=== PATIENT | female | born 1950 | race Caucasian/White ===

== ENCOUNTER → 2017-05-01 | Outpatient (CLI) | payer MEDICARE ==
[~2017-05-01] MED LIST: BABY81CH OR; CALCTAB22 PO; ESTR62CR TOP; FISH1000 OR; FLAXOIL PO; MULTIVIT PO; SIMV5TAB2 OR; VIT D 2000 PO; VITA500C OR; [UNRECOGNIZED DRUG - OTHER] PO
--- NOTE | 2017-05-01 12:03 | REP ---
BILATERAL MAMMOGRAM: Bilateral mammography performed in the MLO and CC projections. Comparison made with multiple prior exams, most recent of which is 05/01/2016. Family history of breast cancer in sister. Breast parenchyma is moderately dense in a heterogeneous pattern bilaterally. Questionable 6 mm nodular density centrally on the left CC view may be inferiorly located on the MLO view. Recommend spot compression views and ultrasound to further evaluate. No other new mass or clustered microcalcifications are seen. IMPRESSION: ACR 0 incomplete. Possible new 6 mm nodular density left breast centrally on the CC view, possibly inferiorly on the MLO view. Recommend spot compression views and ultrasound to further evaluate. Also given the patient's family history and dense breast parenchyma, I would suggest MRI of the breasts. BI-RADS/ACR category 0 mammogram. Incomplete: Additional imaging and/or prior images are needed before a final assessment can be assigned. This mammogram was interpreted with the aid of an FDA-approved computer-aided detection system. A. Negative x-ray reports should not delay biopsy if a dominant or clinically suspicious mass is present. B. Four to eight percent of cancers are not identified by x-ray. C. Adenosis and dense breasts may obscure an underlying neoplasm. The patient states she had a clinical breast exam in 04/2017. The patient letter being requested is M0.
--- NOTE | 2017-05-02 09:47 | DEXA ---
AP SPINE L1 - L4 0.813 -3.1 -1.4 LT FEMUR TOTAL 0.809 -1.6 -0.2 RT FEMUR TOTAL 0.912 -0.8 0.6 TOTAL BODY TOTAL OTHER DUAL FEMUR FRAX* ASSESSMENT Risk factors: None. 10 year probability of fracture Major osteoporotic fracture 10.6 % Hip fracture 1.9 % COMMENTS: Normal bone densitometry of the right hip. There is low bone density of the left hip. There is osteoporosis of the spine. The increased density of the spine does represent a significant change. The decreased density of the left hip does represent a significant change. The decreased density of the right hip does not represent a significant change. The density of the spine is decreased 1.3% since the initial exam on 08/26/2007. The spine density has increased 2.4% since the most recent exam on 04/20/2015. The density of the left hip has decreased 2.2% since the initial exam on 2006. The density of the left hip has decreased 4.8% since the most recent exam on . The density of the right hip has increased 0.9% since the initial exam on 2006. The density of the right hip has decreased 1.0% since the most recent exam on . FOLLOW-UP: Recommendation for the next bone density exam: 2 years. SAFIA
== END ==
LOC: M WHC 10:03
PROVIDERS: ATTEND Nurse Practitioner Women's Health
DX: Z12.31 Encounter for screening mammogram for malignant neoplasm of breast (principal); R92.8 Other abnormal and inconclusive findings on diagnostic imaging of breast; M81.0 Age-related osteoporosis without current pathological fracture; Z78.0 Asymptomatic menopausal state; Z80.3 Family history of malignant neoplasm of breast; Z12.4 Encounter for screening for malignant neoplasm of cervix; N88.8 Other specified noninflammatory disorders of cervix uteri
CPT/HCPCS: 77080; G0123; G0202

== ENCOUNTER → 2017-05-01 | Outpatient (REF) | payer MEDICARE | LOC: M SFHCWAGY 10:27 | PROVIDERS: ATTEND Nurse Practitioner Women's Health | DX: Z12.4 Encounter for screening for malignant neoplasm of cervix (principal); N88.8 Other specified noninflammatory disorders of cervix uteri ==

== ENCOUNTER → 2017-05-10 | Outpatient (CLI) | payer MEDICARE ==
--- NOTE | 2017-05-10 13:42 | REP ---
LEFT BREAST ULTRASOUND: 05/10/2017 COMPARISON: Diagnostic digital left mammogram, 05/10/2017, screening mammogram 05/01/2017. CLINICAL HISTORY: Nodular tissue asymmetry on screening mammogram left breast centrally. Diagnostic mammogram performed today with multiple fibronodular densities. FINDINGS: Sonographic evaluation 4 to 8-o'clock position retroareolar lower breast. The exam shows multiple dilated ducts converging on the nipple without visible filling defects. Multiple small cysts identified. The largest at the 6-o'clock position is 5.5 x 3.7 x 3.2 mm, and it is 2.7 cm from nipple which would correspond well with the mammographic finding. IMPRESSION: 1. BIRADS ACR category 2, benign. Benign findings. Please see the mammographic report this date for final assessment and recommendation. Signed by Jordan Power MD 05/10/2017 10:18 P
--- NOTE | 2017-05-10 13:54 | REP ---
DIAGNOSTIC DIGITAL LEFT MAMMOGRAM: 05/10/2017 COMPARISON: Left breast ultrasound today, digital screening mammogram, 05/01/2017, 05/01/2016, 04/20/2015. CLINICAL HISTORY: Central areolar density on the CC view, not well seen on other views, but possibly inferiorly. Spot magnified CC, MLO, and true ML views were provided. The breast parenchyma is heterogeneously dense, which may lessen the sensitivity of mammography. Nodular tissue asymmetry is discernible, retroareolar zone centrally and in the CC view and difficult to see on the MLO view. On the true MLO view, I suspect it is at the 6-o'clock position. In the retroareolar zone, there are no abnormal clusters of microcalcification, dominant masses, or other secondary signs of malignancy. No skin thickening noted. The left breast ultrasound showed multiple small cysts, the largest was 5.5 x 3.7 x 3.2 mm and corresponded in size and location to the mammogram. IMPRESSION: 1. BIRADS ACR category 2, benign. Benign finding. Tissue asymmetry on the screening exam confirmed by spot compression and ultrasound is a small cyst 5.5 x 3.7 x 3.2 mm with other smaller cysts there as well as retroareolar dilated ducts without filling defects. No evidence of malignancy. 2. Recommend followup mammography 1 year. BI-RADS/ACR category 2 mammogram. Benign finding(s). Routine annual screening mammography (for women over age 40). This mammogram was interpreted with the aid of an FDA-approved computer-aided detection system. The patient states she had a clinical breast exam in 04/2017. The patient letter being requested is M1, dense. Signed by Jordan Power MD 05/10/2017 10:18 P
== END ==
LOC: M RAD 10:49
PROVIDERS: ATTEND Nurse Practitioner Women's Health
DX: N60.12 Diffuse cystic mastopathy of left breast (principal); M81.0 Age-related osteoporosis without current pathological fracture; Z78.0 Asymptomatic menopausal state
CPT/HCPCS: 76642; G0206

== ENCOUNTER → 2018-05-02 | Outpatient (CLI) | payer MEDICARE | LOC: M WHC 10:43 | DX: Z01.419 Encounter for gynecological examination (general) (routine) without abnormal findings (principal); Z12.31 Encounter for screening mammogram for malignant neoplasm of breast (principal); R92.8 Other abnormal and inconclusive findings on diagnostic imaging of breast; Z78.0 Asymptomatic menopausal state; Z98.890 Other specified postprocedural states; Z79.890 Hormone replacement therapy; Z12.12 Encounter for screening for malignant neoplasm of rectum | CPT/HCPCS: 77067 ==

== ENCOUNTER → 2019-05-04 | Outpatient (CLI) | payer MEDICARE ==
--- NOTE | 2019-05-04 12:35 | REP ---
BILATERAL SCREENING DIGITAL MAMMOGRAM WITH 3D TOMOSYNTHESIS: There are no palpable abnormalities or other breast complaints. The the patient states she had a clinical breast examination December/2018. The the patient states she performs self-breast examinations 12 times per year. The Tyrer Cuzick Score is: 12.7%. . Comparison is 04/29/2014. The breasts are heterogeneously dense, which could obscure small masses. There is no dominant mass, micro calcific cluster or architectural distortion that would indicate malignancy. There are no additional findings on 3D tomosynthesiss. There is no change from the prior study. Impression: BIRADS/ACR category 1 mammogram. Negative. Recommendation: Routine annual screening mammography. Because of the increased breast density, annual adjunctive breast MRI in addition to screening mammography is recommended. This mammogram was interpreted with the aid of a FDA approved computer-aided detection system. A. Negative mammogram reports should not delay biopsy if a dominant or clinically suspicious mass is present. B. Not all breast cancers are identified by mammography or tomosynthesis. C. Adenosis and dense breasts may obscure an underlying neoplasm. Patient letter M1 dense breasts. Electronically Signed by Rayshawn Sarmiento MD 05/04/2019 12:26 P
--- NOTE | 2019-05-05 13:41 | DEXA ---
AP SPINE L1 - L4 0.751 -3.6 -1.9 LT FEMUR TOTAL 0.807 -1.6 -0.1 LT NECK 0.754 -2.0 -0.4 RT FEMUR TOTAL 0.904 -0.8 0.6 RT NECK 0.925 -0.8 0.9 TOTAL BODY TOTAL OTHER COMMENTS: There is low bone density of the hips. There is osteoporosis of the spine. The density of the spine has decreased 8.9% since the initial exam on 08/26/2007. The spine density has decreased 7.6% since the most recent exam on 05/01/2017. The density of the left hip has decreased 2.4% since the initial exam on 08/26/2007. The density of the left hip has decreased 0.2% since the most recent exam on 05/01/2017. The density of the right hip has not changed since the initial exam on 08/26/2007. The density of the right hip has decreased 0.9% since the most recent exam on 05/01/2017. FOLLOW-UP: Recommendation for the next bone density exam: 2 years. SAFIA
== END ==
LOC: M WHC 10:54
PROVIDERS: ATTEND Nurse Practitioner Women's Health
DX: Z12.31 Encounter for screening mammogram for malignant neoplasm of breast (principal); M81.0 Age-related osteoporosis without current pathological fracture; Z78.0 Asymptomatic menopausal state

== ENCOUNTER → 2020-02-25 | Outpatient (CLI) | payer MEDICARE ==
[2020-02-25 18:25] LABS: CALCIUM LEVEL 9.1 MG/DL (8.8-10.2)
== END ==
LOC: M PLALAB 14:56
PROVIDERS: ATTEND Nurse Practitioner Family
DX: M81.0 Age-related osteoporosis without current pathological fracture (principal)

== ENCOUNTER → 2020-05-05 | Outpatient (CLI) | payer MEDICARE ==
--- NOTE | 2020-05-30 07:14 | REPMRS ---
Patient History The patient states she had a clinical breast exam in 04/2020. Patient is postmenopausal. Family history of breast cancer at age 57 in sister. Benign cyst aspiration of both breasts. Took unspecified hormones for 11 years. Digital Woman Screen Mammo: May 05, 2020 - Exam #: [id number] Bilateral CC and MLO view(s) were taken. Technologist: Alicia Schilling, Technologist Prior study comparison: May 04, 2019, bilateral digital woman screen mammo performed at [facility]. May 02, 2018, bilateral digital woman screen mammo performed at [facility]. May 10, 2017, left breast ultrasound unilateral limited, performed at [facility]. FINDINGS: The breast tissue is heterogeneously dense. This may lower the sensitivity of mammography. The Volpara volumetric breast density category is: C. There is a moderate amount of heterogeneously dense fibroglandular tissue which is fairly symmetric. There is no interval development of dominant mass, architectural distortion, or grouped microcalcification typical of malignancy. There has been no change in the appearance of the mammogram from the prior studies. 3-D tomosynthesis shows no additional findings. Report was delayed due to a protracted computer network disruption experienced by this facility. Assessment: BI-RADS/ACR category 1 mammogram. Negative Mammogram. Recommendation Routine screening mammogram of both breasts in 1 year (for women over age 40). This patient's Lifetime Breast Cancer RIsk is estimated at 12.0 %. This mammogram was interpreted with the aid of an FDA-approved computer-aided dectection system. Electronically Signed By: William Rocha MD 05/29/20 [id number]
== END ==
LOC: M WHC 09:39
PROVIDERS: ATTEND Nurse Practitioner Women's Health
DX: Z01.419 Encounter for gynecological examination (general) (routine) without abnormal findings (principal); Z12.31 Encounter for screening mammogram for malignant neoplasm of breast; Z78.0 Asymptomatic menopausal state; Z80.3 Family history of malignant neoplasm of breast; Z92.29 Personal history of other drug therapy; Z86.018 Personal history of other benign neoplasm
CPT/HCPCS: 77063; 77067; G0101

== ENCOUNTER → 2020-10-13 | Outpatient (CLI) | payer MEDICARE ==
--- NOTE | 2020-10-13 10:20 | DEXAMM ---
INDICATION: M81.0 AGE RELATED OSTEOPOROSIS W/O FX. COMPARISON: There are numerous prior studies, the most recent of which is from May 04, 2019 and the most remote is dated August 26, 2007.. TECHNIQUE: Bone density was measured using dual-energy x-ray absorptionmetry (DEXA). FINDINGS: AP SPINE L1-L4 BMD 0.742 g/cm2 Young Adult T-Score -3.7 Age Matched Z-Score -2.0. LT FEMUR, TOTAL BMD 0.836 g/cm2 Young Adult T-Score -1.4 Age Matched Z-Score 0.2. LT NECK BMD 0.772 g/cm2 Young Adult T-Score -1.9 Age Matched Z-Score -0.2. RT FEMUR, TOTAL BMD 0.901 g/cm2 Young Adult T-Score -0.8 Age Matched Z-Score 0.7. RT NECK BMD 0.926 g/cm2 Young Adult T-Score -0.8 Age Matched Z-Score 0.9. IMPRESSION: There is osteoporosis of the spine. There is low bone density of the left hip. There is normal bone density of the right hip. The density of the spine has decreased 10.0% since the initial exam on August 26, 2007. The density of the spine decreased 1.2% since most recent exam on May 04, 2019. The density of the left hip has increased 1.1% since initial exam on August 26, 2007. The density of the left hip has increased 3.6% since most recent exam on May 04, 2019. The density of the right hip has decreased 0.3% since the initial exam on August 26, 2007. The density of the right hip has decrease 0.3% since the most recent exam on May 04, 2019. FOLLOW-UP: Recommendation for the next bone density exam: 2 years. <Electronically signed by William Rocha > 10/13/20 [id number]
== END ==
LOC: M WHC 09:30
PROVIDERS: ATTEND Nurse Practitioner Family
DX: M81.0 Age-related osteoporosis without current pathological fracture (principal); M85.852 Other specified disorders of bone density and structure, left thigh

== ENCOUNTER → 2021-05-09 | Outpatient (CLI) | payer MEDICARE ==
[~2021-05-09] MED LIST changes: +COLLAGEN PEPTIDES PO; +D31000TA2 PO; +ECOT81TA5 PO; +EQL50TAB2 PO; +FISH OIL PO; +FISH1000 PO; +L-LY500T6 PO; +OCUVCAP2 PO; +SIMV10TA21 PO; +STRONTIUM PO; +TURMERIC PO; +ULTR50TA8 PO; +VITA500C24 PO; +[UNRECOGNIZED DRUG - CODE] PO; +[UNRECOGNIZED DRUG - OTHER]
== END ==
LOC: M WHC 10:03
PROVIDERS: ATTEND Nurse Practitioner Women's Health
DX: Z12.31 Encounter for screening mammogram for malignant neoplasm of breast (principal); N63.24 Unspecified lump in the left breast, lower inner quadrant

== ENCOUNTER → 2021-05-18 | Outpatient (CLI) | payer MEDICARE ==
[~2021-05-18] MED LIST changes: -COLLAGEN PEPTIDES PO; -D31000TA2 PO; -ECOT81TA5 PO; -EQL50TAB2 PO; -FISH OIL PO; -FISH1000 PO; -L-LY500T6 PO; -OCUVCAP2 PO; -SIMV10TA21 PO; -STRONTIUM PO; -TURMERIC PO; -ULTR50TA8 PO; -VITA500C24 PO; -[UNRECOGNIZED DRUG - CODE] PO; -[UNRECOGNIZED DRUG - OTHER]
--- NOTE | 2021-05-18 14:21 | REP ---
INDICATION: ADDL VIEWS/LEFT BREAST/CALCS; ADDL VIEWS/LEFT BREAST - CALCS. COMPARISON: Comparison mammography May 09, 2021, May 05, 2020, and May 04, 2019. TECHNIQUE: Magnified focal spot-compression craniocaudal, mediolateral oblique, and mediolateral views of the left breast are obtained. 3D tomography is deployed in the mediolateral projection. Targeted left breast sonography is performed. This mammogram was interpreted with the aid of an FDA-approved computer-aided detection system. FINDINGS: Diagnostic left breast mammography and confirms the presence of a suspicious group of polymorphic microcalcifications in the inferior and medial quadrant of the left breast. These are in the periphery of an associated spiculated 1 cm soft tissue mass. Mammographic findings are highly suspicious. Breast parenchyma remains heterogeneously dense but otherwise unremarkable. The Volpara volumetric breast density pattern is C. Targeted ultrasound: Targeted left breast sonographic scanning demonstrates a angular somewhat spiculated hypoechoic mass 1.0 x 0.7 x 1.0 cm in diameter in the 7 o'clock position 3 cm from the nipple in the inferior and medial quadrant of the left breast. This displays a high shear wave elastography number, 96 K PA. IMPRESSION: BIRADS/ACR category 5 highly suspicious left breast mammographic and sonographic findings. 1 cm spiculated mass containing microcalcifications in the inferomedial quadrant on the left. This patient's Tyrer-Cuzick lifetime breast cancer risk assessment score is 11.3%. RECOMMENDATION: Ultrasound-guided needle biopsy of the left breast mass with marker clip placement and post clip placement mammography of the left breast is recommended.. The patient letter being requested is M4. <Electronically signed by William Rocha > 05/18/21 [id number]
== END ==
LOC: M WHC 12:58
PROVIDERS: ATTEND Nurse Practitioner Women's Health
DX: N63.24 Unspecified lump in the left breast, lower inner quadrant (principal)
CPT/HCPCS: 76642; 77065; G0279

== ENCOUNTER → 2021-05-25 | Outpatient (CLI) | payer MEDICARE ==
[~2021-05-25] MED LIST changes: +FISH1000 PO; +L-LY500T6 PO; +OCUVCAP2 PO; +STRONTIUM PO; +[UNRECOGNIZED DRUG - OTHER]
[2021-05-25 09:59] VITALS: BP 156/86
--- NOTE | 2021-05-30 20:21 | ROOPDOC ---
[facility] Report Of Operation Report of Operation DATE OF PROCEDURE: 05/25/2021 DIAGNOSIS: left breast suspicious lesion PROCEDURE: ultrasound guided biopsy of the left breast suspicious lesion with clip placement SURGEON: Loni Benson BLOOD LOSS: minimal COMPLICATIONS: none Lidocaine 1% LOT [id number] Expiration 11/2024 Sodium Bicarbonate 8.4% LOT [id number] Expiration 11/2021 Hydromark clip LOT [id number] Expiration 01/2024 SHAPE: 3 Bx device: BARD [id number] x10 cm LOT [id number] Expiration 01/2024 Informed consent was obtained. The most common risk and possible complications including bleeding, hematoma, bruising, infection, injury to surrounding structures were explained to the patient and the patient expressed understanding. Patient was placed on the bed in the supine position. Appropriate time out was done stating patients name, date of , and the procedure to be performed. The left breast was prepped and draped in the usual fashion. The ultrasound was used to confirm the location of the lesion in the left breast at 7:00 3 centimeters from the nipple. Plain Lidocaine 1% and 8.4% sodium bicarbonate 10:1 mix was used to anesthetize the skin, the biopsy site and tissues along the anticipated biopsy tract. Small skin incision was made with blade number 11. BARD Marquee 14G cannula with introducer ([id number]) was inserted through the incision and advanced under the ultrasound guidance to position immediately adjacent to the lesion. Next, the introducer was removed and BARD Marquee 14G biopsy device was places in the cannula. Pre-biopsy imaging, and post-biopsy imaging were captured. Five good core biopsies were taken at various levels of the lesion. Specimen was placed in formaldehyde, labeled with appropriate biopsy site and patients name, and sent to pathology for evaluation. Next, the biopsy device was withdrawn and a clip introducer was inserted into the biopsy site via the cannula. SHAPE 3 Hydromark clip was deployed under sonographic guidance. Post-clip placement image was captured. Manual pressure over the biopsy cavity and tract was held after the clip introducer was withdrawn. No bleeding was noted upon removal of the pressure. Post-biopsy mammogram of the left breast was obtained and showed clip in expected position. Postprocedural dressing was placed. Patient tolerated procedure well. Discharge instructions were discussed with the patient and the patient expressed understanding. LONI BENSON DO May 30, 2021 20:21
== END ==
LOC: M WHCPRO 09:13
PROVIDERS: ATTEND Surgery
DX: C50.312 Malignant neoplasm of lower-inner quadrant of left female breast (principal); N63.24 Unspecified lump in the left breast, lower inner quadrant
CPT/HCPCS: 19083; 77065; 88305; G0279

== ENCOUNTER → 2021-05-30 | Outpatient (CLI) | payer MEDICARE ==
[2021-05-30 14:11] LABS: BLOOD UREA NITROGEN 16 MG/DL (7-18); CALCIUM LEVEL 9.6 MG/DL (8.8-10.2); CARBON DIOXIDE LEVEL 31 MEQ/L (21-32); CHLORIDE LEVEL 105 MEQ/L (98-107); CREATININE FOR GFR 0.78 MG/DL (0.55-1.30); GLOMERULAR FILTRATION RATE > 60.0 (>39); GLUCOSE, FASTING 103 MG/DL (70-100); POTASSIUM SERUM 4.9 MEQ/L (3.5-5.1); SODIUM LEVEL 140 MEQ/L (136-145)
== END ==
LOC: M PLALAB 11:01
PROVIDERS: ATTEND Surgery
DX: C50.912 Malignant neoplasm of unspecified site of left female breast (principal)

== ENCOUNTER → 2021-06-02 | Outpatient (CLI) | payer MEDICARE ==
[~2021-06-02] MED LIST changes: +PROHANCE 279.3MG/ML 15ML VIAL As Ordered ONE; +PROHANCE 279.3MG/ML 5ML VIAL As Ordered ONE
--- NOTE | 2021-06-05 08:45 | REP ---
INDICATION: INVASIVE DUCTAL CARCINOMA LT BREAST. COMPARISON: Comparison mammography May 09, 2021 and May 18, 2021. Patient is status post ultrasound-guided needle biopsy left breast lesion May 25, 2021. TECHNIQUE: Three Sarah MRI imaging was performed with a dedicated breast coil. Axial, coronal, and sagittal T1 and T2 weighted scans were obtained with and without fat saturation in the usual fashion. The study includes dynamically acquired post gadolinium-enhanced imaging with image subtraction. Maximum intensity projection and multi planar reformation imaging is included as well. This study is interpreted with the aid of Peak, an FDA approved computer aided detection (CAD) software program, on a dedicated breast MRI workstation. The gadolinium enhancement dose is 10 mL of intravenous ProHance. FINDINGS: There is a moderate to marked amount of fibroglandular tissue bilaterally corresponding with the mammographic pattern. There is minimal background parenchymal enhancement. There is no evidence of axillary lymphadenopathy. There is a 1 cm cyst in the right breast at approximately 12 o'clock. There is a small cyst posteriorly in the left breast. There are dilated retroareolar breast ducts bilaterally. These contain T1 hyperintense proteinaceous material. The recently PICC placed post biopsy HydroMARK clip device is seen in the inferior aspect of the left breast at approximately 6 o'clock. At this site, there is a 1 cm area of heterogeneous contrast enhancement. This is the site of the invasive ductal carcinoma. No other suspicious focus of enhancement and/or washout kinetics is are seen on dynamically acquired post contrast images. No other significant morphologic abnormality is seen. IMPRESSION: BI-RADS category 6 known left breast malignancy. No other suspicious MRI abnormality. <Electronically signed by William Rocha > 06/05/21 [id number]
== END ==
LOC: M RAD 15:38
PROVIDERS: ATTEND Surgery
DX: C50.912 Malignant neoplasm of unspecified site of left female breast (principal)
CPT/HCPCS: A9576; C8908

== ENCOUNTER → 2021-06-07 | Outpatient (CLI) | payer MEDICARE ==
[~2021-06-07] MED LIST changes: +COLLAGEN PEPTIDES PO; +D31000TA2 PO; +ECOT81TA5 PO; +EQL50TAB2 PO; +FISH OIL PO; -PROHANCE 279.3MG/ML 15ML VIAL As Ordered ONE; -PROHANCE 279.3MG/ML 5ML VIAL As Ordered ONE; +SIMV10TA21 PO; +TURMERIC PO; +ULTR50TA8 PO; +VITA500C24 PO; +[UNRECOGNIZED DRUG - CODE] PO
--- NOTE | 2021-06-07 13:21 | REP ---
INDICATION: MALIGNANT NEOPLASM OF UNSPECIFIED SITE OF LEFT FEMALE BREAST. COMPARISON: No comparison chest x-ray. TECHNIQUE: Two views.. FINDINGS: The lungs are somewhat hyperinflated but free of infiltrate. There is mild linear fibrosis in the left base. Lung ponce are otherwise clear. Pulmonary vasculature is not increased. Heart is near the upper limit of normal in size. Cardiothoracic ratio measures 48.1%. There are degenerative changes in the thoracic spine. IMPRESSION: Hyperinflation of the lungs. Otherwise no active disease. <Electronically signed by William Rocha > 06/07/21 [id number]
== END ==
LOC: M PLAIMG 12:46
PROVIDERS: ATTEND Surgery
DX: C50.912 Malignant neoplasm of unspecified site of left female breast (principal)

== ENCOUNTER → 2021-06-08 | Outpatient (CLI) | payer MEDICARE | LOC: M LABSMTC 09:08 | PROVIDERS: ATTEND Anesthesiology | DX: Z01.818 Encounter for other preprocedural examination (principal); Z11.52 Encounter for screening for COVID-19 ==

== ENCOUNTER 2021-06-13 08:34 | Day surgery (SDC) | payer MEDICARE ==
[~2021-06-13] VITALS: Ht 162.6 cm; Wt 51.6 kg
[~2021-06-13 08:34] MED LIST changes: +HEPARIN SOD (PORCINE) 5000UNITS/ML 1ML VIAL/SYRINGE SQ ONE; +LR 1,000 ML IV ONE; -ULTR50TA8 PO; +ceFAZolin SOD 2 GM in IV 1 EA IV ONE
[2021-06-13] MEDS ORDERED: MIDAZOLAM INJ 2MG/2ML VIAL (J2250 PER 1MG) As Ordered ONE (12:13)
[2021-06-13] MEDS ORDERED: fentaNYL 100 MCG/2 ML INJECTION (J3010) As Ordered ONE (12:13)
[2021-06-13] MEDS ORDERED: LIDOCAINE 2% 100MG/5ML SDV (FOR ANES.) As Ordered ONE (12:14)
[2021-06-13] MEDS ORDERED: BUPIVACAINE HCL 0.25% 30ML VIAL As Ordered ONE (12:37)
[2021-06-13] MEDS ORDERED: LIDOCAINE 1% SDV 30ML VIAL As Ordered ONE (12:37)
[2021-06-13] MEDS ORDERED: METHYLENE BLUE 0.5% (5MG/ML) 10 ML AMP (PROVAYBLUE) As Ordered ONE (12:37)
[2021-06-13] MEDS ORDERED: dexameTHASONE 4 MG/ML 1ML VIAL (J1100 PER 1MG) As Ordered ONE (13:08)
[2021-06-13] MEDS ORDERED: propofoL 200 MG/20 ML VIAL As Ordered ONE (13:09)
[2021-06-13] MEDS ORDERED: ONDANSETRON 4MG/2ML VIAL As Ordered ONE (13:09)
[2021-06-13] MEDS ORDERED: ACETAMINOPHEN 1000MG 100ML IV BTL (OFIRMEV) (J0131 PER 10MG) As Ordered ONE (13:10)
[2021-06-13] MEDS ORDERED: ePHEDrine SULFATE 25 MG/5 ML(5MG/ML) SYRINGE As Ordered ONE (13:16)
[2021-06-13] MEDS ORDERED: PHENYLephrine 500MCG 5ML (100MCG/ML) SYRINGE As Ordered ONE (13:33)
[2021-06-13] MEDS ORDERED: ULTR50TA8 PO (16:04)
[2021-06-13] MEDS ORDERED: ONDANSETRON 4MG/2ML VIAL IV PRN (16:05)
[2021-06-13] MEDS ORDERED: fentaNYL 100 MCG/2 ML INJECTION (J3010) IV PRN (16:05)
[2021-06-13] MEDS ORDERED: oxyCODONE 5MG TAB PO PRN (16:05)
[2021-06-13] MEDS ORDERED: LR 1,000 ML IV SCH (16:05)
--- NOTE | 2021-06-13 16:56 | REP ---
INDICATION: LEFT BREAST CA. COMPARISON: None. TECHNIQUE: The procedure was performed under the direct supervision of Dr. Zavaleta. The images were reviewed with Dr. Zavaleta. The risks and benefits of the procedure were explained to the patient and informed consent was obtained. Using topical anesthetic and sterile technique 1.007 mCi of technetium 99 filtered sulfur colloid was injected subdermally in 8 fractionated periareolar injections. Images obtained 1 hour after injection show a dominant focus of uptake in the left axilla. The patient tolerated the procedure well and there were no immediate complications. FINDINGS: There is a dominant focus of uptake in the left axilla. IMPRESSION: Left breast lymphoscintigraphy. There is a dominant focus of uptake in the left axilla. <Electronically signed by Miguel A Varner > 06/13/21 [id number] <Electronically signed by Rayshawn Zavaleta > 06/13/21 [id number]
[2021-06-13] MEDS ORDERED: ACETAMINOPHEN TAB 650MG DOSE (2X325MG) PO ONE (17:30)
[2021-06-13 18:41] VITALS: BP 140/71
--- NOTE | 2021-06-17 17:21 | ROOPDOC ---
[facility] Report Of Operation Report of Operation DATE OF PROCEDURE: 06/13/21 PREPROCEDURE DIAGNOSES: left breast cancer POSTPROCEDURE DIAGNOSES: same PROCEDURE PERFORMED: left breast lumpectomy with intraop wire placement and left sentinel lymph node biopsy, intraop radiography of the specimen with assessment SURGEON: Dr Loni Benson ANESTHESIA: general ESTIMATED BLOOD LOSS: Approximately 25 mL. COMPLICATIONS: none FINDINGS: clip, mass, calcs, wire seen in the specimen PROCEDURE NOTE: INDICATIONS: Ms. Helm is a 70-year-old woman who was found to have a suspicious left breast mass with calcifications on screening mammogram. This was evaluated with US and a 1:00 sonographic correlate was found at 7:00. US guided biopsy of the mass came back as Invasive ductal carcinoma Grade 2, ER +, VA +, HER-2 negative. We have discussed surgical options. She opted for left breast conservative surgery with left axillary sentinel lymph node biopsy. She was medically cleared for surgery by her primary care doctor. Risks and possible complications of surgical procedure including bleeding, inf ection and injury to surrounding structures were explained to the patient and she wished to proceed. Consent was signed. My initials were placed on the operative site. Subcutaneous injection of 5000 units of heparin was done in Preop. The injection of radioactive tracer was done in radiology department preoperatively. Lymphoscintigraphy imaging was reviewed in preop. DETAILS: Patient was taken to the operating room and placed on the operating room table. A sign in was called stating patients name, date of and the procedure to be done. Preoperative antibiotics were infused. Smooth induction of general anesthesia was done. Patients hands were extended on arm rests. Care was taken not to over extend the arms. Pillow was placed under the knees and a foam was placed under the heels. Sequential compression devices were placed and assured to function correctly. Procedure was started with left breast intraop wire localization. Appropriate time out was done and patients name, date of , and the procedure to be done were confirmed. left breast was cleaned by me. Intraoperative ultrasound was used to confirm location of the Hydromark clip and the lesion. Location of the clip was marked on the skin as well. 21 G Kopans Breast Lesion Localization Needle was used to place 25 cm wire through the lesion. The end of the wire was passed a centimeter deep. The images were captured confirming adequate placement of the localizing wire. Clinical Nursing Assistant assisted with the wire placement. Next, patients left breast and axilla were prepped and draped in the usual fashion. Care was taken not to displace the wire. Appropriate time out was done again prior second part of the procedure. Patients name, date of , and the procedure to be done were confirmed. Procedure was started with sentinel lymph node biopsy. Neoprobe was used to locate area of maximum intensity of the signal. Local anesthetic using 1% lidocaine and 0.25 % Marcaine 50/50 mix was injected. An incision was made with scalpel number 15 at the inferior aspect of axillary hair line in the left axilla where the maximum signal was identified. The sharp and blunt dissection was continued through the subcutaneous adipose tissue. Clavipectoral fascia was opened. Neoprobe was used to guide the dissection. First sentinel lymph node was identified and excised. The ex-vivo 10 second count was 12134. Second sentinel lymph node was identified and excised as well. The ex-vivo 10 second count was 729. Third sentinel lymph node was identified and excised as well. The ex-vivo 10 second count was 1558. This third sentinel lymph node was at the superior level 2. The specimens were labeled with patients name and sent to pathology. No additional lymph nodes with high radioactive signal were identified. The 10 second count of the background was 139. Adequate hemostasis was assured. Additional local anesthetic was injected into surrounding tissues. Wound was irrigated. Clavipectoral fascia was closed with 3-0 Vicryl interrupted suture. Dermal layer was closed at the end of the case with 3-0 Monocryl and skin was closed with 4-0 Monocryl. Surgical glue was applied to the incision at the end of the procedure. Next, our attention was turned toward the left breast. Local anesthetic using 1% lidocaine and 0.25 % Marcaine 50/50 mix was injected at the site of planned periareolar incision. The incision was made with the scalpel. Subcutaneous skin flaps were raised and the guide wire was carefully pulled into the wound. Dissection was carries along the wire until the previously marked on the skin area of target lesion location was encountered. At this point, wider excision of the tissue surrounding the wire was done. The Hydromark clip was identified in the tissue with intraoperative hockey stick ultrasound probe. The end of the wire was identified with palpation. The lumpectomy specimen was carefully removed from the breast keeping its proper orientation and moved to the back table where margins were marked with the surgical inking kit following the standard colors recommendations. Specimen was then placed on the grid and placed in G5 Specimen Imaging System. The image revealed the wire, the mass with calcifications and the Hydromark in the specimen. Margins of the lumpectomy site were evaluated. The clip and the mass appeared in the middle of the specimen, hence, no additional excision or margins was needed. The specimen was labeled with patients name and left lumpectomy and sent to pathology. The specimen measured 4.6 x 2.7 x 2.0 cm. At this time, adequate hemostasis was assured. Additional local anesthetic was injected into surrounding tissues. Five clips were placed to nieves the cavity. space was approximated with 2-0 Vicryl. The dermis was closed with 3-0 Vicryl and skin was closed with 4-0 Monocryl. Surgical glue was placed over the incision. Patient emerged from the anesthesia without any problems. Fluffs were placed over the operative site and patients chest was wrapped snuggly in the MATT wrap. Sponge and instrument counts were done and were correct. Patient tolerated procedure well and was taken to recovery unit in stable condition. LONI BENSON DO Jun 17, 2021 17:21
[2021-07-04] MEDS ORDERED: ECOT81TA5 PO (11:20)
== END 2021-06-13 19:00 | disposition home or self-care (01) ==
LOC: M SDC 08:34
PROVIDERS: ATTEND Surgery
DX: D05.12 Intraductal carcinoma in situ of left breast (principal); Z17.0 Estrogen receptor positive status [ER+]; Z80.3 Family history of malignant neoplasm of breast; E78.5 Hyperlipidemia, unspecified; M81.0 Age-related osteoporosis without current pathological fracture; Z79.899 Other long term (current) drug therapy; Z79.82 Long term (current) use of aspirin; Z92.29 Personal history of other drug therapy; Z72.89 Other problems related to lifestyle; Z87.891 Personal history of nicotine dependence; Z91.040 Latex allergy status; Z88.1 Allergy status to other antibiotic agents; Z88.8 Allergy status to other drugs, medicaments and biological substances; Z88.2 Allergy status to sulfonamides
CPT/HCPCS: 19125; 36415; 38525; 76942; 78195; 86850; 86900; 86901; 88307; 88342; A9541; J0131; J0690; J1100; J1644; J2250; J2370; J2405; J3010; Q9968

== ENCOUNTER → 2021-07-04 | Outpatient (CLI) | payer MEDICARE ==
[~2021-07-04] MED LIST changes: -HEPARIN SOD (PORCINE) 5000UNITS/ML 1ML VIAL/SYRINGE SQ ONE; -LR 1,000 ML IV ONE; +ULTR50TA8 PO; -ceFAZolin SOD 2 GM in IV 1 EA IV ONE
--- NOTE | 2021-07-04 14:06 | RADONC.CN ---
Radiation Oncology Hx/Consult Radiation Oncology Consult Date of Service: Jul 04, 2021 Pt Identifier Gissel Helm is a 71 year old female with screening mammogram detected left breast cancer pT1cN0(sn)M0 ER/ID+ HER2- Grade 2. She is s/p lumpectomy with Dr. Benson on 06/13/21. She has an oncotype score of 12. She is seen today for consideration of adjuvant RT. Diagnosis/Treatment History Oncologic History 05/09/21 Mammogram with left breast abnormality 05/18/21 US with 1 cm left central breast lesion 05/25/21 Biopsy showing IDC ER/ID+ HER2- Grade 2 06/02/21 MRI negative 06/13/21 Lumpectomy (Dr. Benson) pT1cN0(sn) margins negative Breast history: OCP x 15 years/premarin cream [employer] 1st @ 28 Menses @ 14 Menopause @ 54 No HRT No IVF Interval History Here with her supportive Segundo. No complaints post-op other than intermittent tenderness. No arm swelling. No skin concerns. Appetite good and weight stable. Past Medical History: HPL Osteoporosis Family History: Mother-HN cancer Sister-Breast cancer @ 64 Social History: Never smoker Drinks 4 days per week 1-2 drinks Allergies / Meds Allergies: Coded Allergies: Sulfa (Sulfonamide Antibiotics) (Verified Allergy, Unknown, RASH, 06/08/21) bacitracin (Verified Allergy, Unknown, RASH, 06/08/21) latex (Verified Allergy, Unknown, BLISTERS, 06/08/21) prednisone (Verified Allergy, Unknown, RASH, 06/08/21) Home Meds Reported Medications Aspirin (Ecotrin) 81 Mg Tablet., 1 TAB PO DAILY for pain for 30 Days, #30 TAB 07/04/21 [Fish Oil, Tumeric] No Conflict Check, 1 POW PO DAILY 06/08/21 Simvastatin (Simvastatin) 10 Mg Tablet, 5 MG PO DAILY, TAB 06/08/21 Sodium Citrate Dihydrate (Sodium Citrate) 100 Gm Granules, 680 MG PO DAILY 06/08/21 [Colagan Peptides] No Conflict Check, 11 GRAMS PO DAILY 06/08/21 Vitamin B Complex (Vitamin B Complex) 1 Each Tablet, 1 TAB PO DAILY, TAB 06/08/21 C,E,Zinc,Copper 24/Om3/Lut/Dylan (Ocuvite Adult 50 Plus Softgel) 1 Each Capsule, 1 CAP PO DAILY, CAP 06/08/21 Ascorbic Acid (Vitamin C) 500 Mg Capsule, 500 MG PO DAILY, CAP 06/08/21 Cholecalciferol (Vitamin D3) (Vitamin D3) 1,000 Unit Tablet, 2000 UNITS PO DAILY , TAB 06/08/21 Lysine (l-Lysine) 500 Mg Tablet, 500 MG PO DAILY for 30 Days, #30 TAB 05/25/21 [place]-3 Fatty Acids/Fish Oil (Fish Oil 1,000 mg Capsule) 1 Each Capsule, 1 CAP PO DAILY for 30 Days, #30 CAP 05/25/21 [Algae Based Calcium] No Conflict Check 05/25/21 Discontinued Scripts Tramadol HCl (Ultram) 50 Mg Tablet, 50 MG PO Q6HP PRN for pain MDD 4 Tablet(s) for 3 Days, #10 TAB Prov:LONI BENSON DO 06/13/21 Review of Systems Constitutional: Denies: Fatigue, Weight Loss Eyes: Denies: Pain HEENT: Denies: Head Aches Skin: Denies: Rash Pulmonary: Denies: Dyspnea Cardiovascular: Denies: Chest Pain Gastrointestinal: Denies: Abdominal Pain Musculoskeletal: Denies: Neck pain, Back pain Neurological: Denies: Weakness, Numbness Psych: Reports: Mood Normal Vital Signs Ht 62" Wt 122 lbs BMI 20 T 97.2 P 82 RR 16 BP 155/78 O2 96% Pain 0 Fatigue 0 General Exam: Alert, Cooperative, No Acute Distress Eye Exam: PERRLA, EOMI ENT EXAM: Atraumatic Neck Exam: Supple Chest Exam: Clear to auscultation Heart Exam: Rate Normal Breast Exam: Symmetric Bilaterally; Negative: Lumps or Masses (No axillary or breast lumps or masses. Palpable left central breast surgical site mild tenderness), Nipple Retraction, Skin Changes Abdomen Exam: Soft Extremity Exam: Negative: Edema Skin Exam: Nl turgor and temperature Neuro Exam: Normal Gait, Normal Speech, Cranial Nerves 3-12 NL Psych Exam: Mental status NL Diagnostic and Laboratory Diagnostic Review Radiologic images, relevant labs and pathology reports were personally reviewed and discussed with Ms. Helm. Assessment and Plan Impression Ms. Helm is a 71 year old female with a history of screening mammogram detected left breast cancer pT1cN0(sn)M0 ER/ID+ HER2- Grade 2. She is s/p lumpectomy with Dr. Benson on 06/13/21. She has an oncotype score of 12. She is seen today for consideration of adjuvant RT. Stage Left central breast cancer pT1cN0(sn)M0 ER/ID+ HER2- Grade 2 Stage 1A Performance Status ECOG 0 Plan We had an extensive discussion with Ms. Helm regarding the diagnosis at hand and available therapeutic options. She has done well post-operatively. I discussed that in her case omission of adjuvant RT is a viable option per CALG B 9343, if she agrees to take the AI. As an alternative to omission I discussed APBI, either 26 Gy in 5 fractions per FAST FORWARD or 40 Gy in 15 fractions per IMPORT LOW. The purpose of RT in this setting is to lower the risk of ipsilateral recurrence , RT does so by ~50%. I discussed that the omission of RT in no way compromises OS in this setting. She would like to think about the options presented before deciding. We discussed the logistics of receiving radiation therapy in detail including the need for a 1-time planning session. We reviewed the side effects of treatment including fatigue, skin reaction, and late fibrosis. With a partial breast technique, the dose to heart and underlying lung can be effectively minimized. After discussing the risks, benefits and alternatives to radiation therapy, Ms. Helm was amenable to pursuing radiotherapy. All questions were answered to the patient's satisfaction. We instructed the patient that if there were any questions,concerns or changes in clinical status in the interim to contact us. Recommendations APBI versus omission of RT as discussed above Patient to alert us of the decision Billing Statement Total time of [37] minutes was spent preparing for the visit [2], obtaining HPI [5], examining the patient [4], reviewing diagnostic tests [3], discussing management options [15], coordinating care [1], and writing this note [7]. JEREMIAH LAW MD Jul 04, 2021 14:06
== END ==
LOC: M ONCR 12:45
PROVIDERS: ATTEND General Practice
DX: C50.112 Malignant neoplasm of central portion of left female breast (principal); Z79.82 Long term (current) use of aspirin; Z79.899 Other long term (current) drug therapy; Z88.1 Allergy status to other antibiotic agents; Z88.2 Allergy status to sulfonamides; Z88.8 Allergy status to other drugs, medicaments and biological substances; Z91.040 Latex allergy status

== ENCOUNTER 2021-07-31 13:57 | Outpatient (RCR) | payer MEDICARE | END 2021-08-06 | LOC: M ONCR 13:57 | PROVIDERS: ATTEND General Practice | DX: C50.112 Malignant neoplasm of central portion of left female breast (principal) ==

== ENCOUNTER 2021-08-18 10:26 | Outpatient (RCR) | payer MEDICARE | END 2021-09-05 | LOC: M ONCR 10:26 | PROVIDERS: ATTEND General Practice | DX: C50.112 Malignant neoplasm of central portion of left female breast (principal) ==

== ENCOUNTER → 2021-08-24 | Outpatient (CLI) | payer MEDICARE | LOC: M LABSMTC 09:52 | PROVIDERS: ATTEND Anesthesiology | DX: Z01.818 Encounter for other preprocedural examination (principal); Z11.52 Encounter for screening for COVID-19 ==

== ENCOUNTER 2021-08-29 11:10 | Day surgery (SDC) | payer MEDICARE ==
[~2021-08-29] VITALS: Ht 160 cm; Wt 48.1 kg
[~2021-08-29 11:10] MED LIST changes: +NS 1,000 ML IV ONE
[2021-08-29] MEDS ORDERED: propofoL 200 MG/20 ML VIAL As Ordered ONE ×2 (12:44→13:12)
[2021-08-29] MEDS ORDERED: PHENYLephrine 500MCG 5ML (100MCG/ML) SYRINGE As Ordered ONE (12:52)
--- NOTE | 2021-08-29 13:17 | ROOR ---
Patient Name: Gissel Helm Procedure Date: 08/29/2021 12:44 PM Date of : 1950 Age: 71 Room: [facility] Gender: Female Note Status: Finalized Procedure: Colonoscopy Indications: Screening for colorectal malignant neoplasm Providers: Wai Disla Jr, MD Referring MD: Tai Mckeon MD Requesting Provider: Medicines: Propofol per Anesthesia Complications: No immediate complications. Procedure: Pre-Anesthesia Assessment: - Prior to the procedure, a History and Physical was performed, and patient medications and allergies were reviewed. The patient is competent. The risks and benefits of the procedure and the sedation options and risks were discussed with the patient. All questions were answered and informed consent was obtained. Patient identification and proposed procedure were verified by the physician and the nurse in the pre-procedure area and in the procedure room. Mental Status Examination: alert and oriented. Airway Examination: normal oropharyngeal airway and neck mobility. Respiratory Examination: clear to auscultation. CV Examination: normal. ASA Grade Assessment: II - A patient with mild systemic disease. After reviewing the risks and benefits, the patient was deemed in satisfactory condition to undergo the procedure. The anesthesia plan was to use moderate sedation / analgesia (conscious sedation). Immediately prior to administration of medications, the patient was re-assessed for adequacy to receive sedatives. The heart rate, respiratory rate, oxygen saturations, blood pressure, adequacy of pulmonary ventilation, and response to care were monitored throughout the procedure. The physical status of the patient was re-assessed after the procedure. The Colonoscope was introduced through the anus and advanced to the cecum, identified by appendiceal orifice and ileocecal valve. The colonoscopy was performed without difficulty. The patient tolerated the procedure well. The quality of the bowel preparation was adequate. Findings: The rectum, recto-sigmoid colon, sigmoid colon, descending colon, transverse colon, ascending colon, cecum and ileocecal valve appeared normal. Impression: - The rectum, recto-sigmoid colon, sigmoid colon, descending colon, transverse colon, ascending colon, cecum and ileocecal valve are normal. - No specimens collected. Recommendation: - Discharge patient to home (ambulatory). - Repeat colonoscopy in 10 years for screening purposes. Procedure Code(s): --- Professional --- 01884, Colonoscopy, flexible; diagnostic, including collection of specimen(s) by brushing or washing, when performed (separate procedure) Diagnosis Code(s): --- Professional --- Z12.11, Encounter for screening for malignant neoplasm of colon CPT copyright 2019 [employer]. All rights reserved. The codes documented in this report are preliminary and upon group art supervisor review may be revised to meet current compliance requirements. Wai Disla MD Wai Disla Jr, MD 08/29/2021 1:16:46 PM Electronically signed by Wai Disla Jr, MD Number of Addenda: 0 Note Initiated On: 08/29/2021 12:44 PM Estimated Blood Loss: Estimated blood loss: none.
[2021-08-29 13:35] VITALS: BP 120/76
== END 2021-08-29 13:50 | disposition home or self-care (01) ==
LOC: M OPP 11:10
PROVIDERS: ATTEND Surgery
DX: Z12.11 Encounter for screening for malignant neoplasm of colon (principal); E78.5 Hyperlipidemia, unspecified; M85.80 Other specified disorders of bone density and structure, unspecified site; Z85.3 Personal history of malignant neoplasm of breast; Z87.891 Personal history of nicotine dependence; Z88.1 Allergy status to other antibiotic agents; Z88.2 Allergy status to sulfonamides; Z91.040 Latex allergy status; Z79.899 Other long term (current) drug therapy
CPT/HCPCS: G0121; J2370

== ENCOUNTER → 2022-02-28 | Outpatient (CLI) | payer MEDICARE ==
[~2022-02-28] MED LIST changes: -D31000TA2 PO; -NS 1,000 ML IV ONE; +VITA100093 PO
== END ==
LOC: M ONCR 09:58
PROVIDERS: ATTEND General Practice
DX: C50.112 Malignant neoplasm of central portion of left female breast (principal); Z79.82 Long term (current) use of aspirin; Z88.1 Allergy status to other antibiotic agents; Z88.2 Allergy status to sulfonamides; Z88.8 Allergy status to other drugs, medicaments and biological substances; Z91.040 Latex allergy status; Z92.25 Personal history of immunosuppression therapy

== ENCOUNTER → 2023-02-27 | Outpatient (CLI) | payer MEDICARE | LOC: M ONCR 09:50 | PROVIDERS: ATTEND General Practice | DX: C50.112 Malignant neoplasm of central portion of left female breast (principal); Z98.890 Other specified postprocedural states; Z92.3 Personal history of irradiation; Z79.810 Long term (current) use of selective estrogen receptor modulators (SERMs); Z88.1 Allergy status to other antibiotic agents; Z88.2 Allergy status to sulfonamides; Z88.8 Allergy status to other drugs, medicaments and biological substances; Z91.040 Latex allergy status; Z79.82 Long term (current) use of aspirin; Z79.899 Other long term (current) drug therapy; Z71.2 Person consulting for explanation of examination or test findings ==

== ENCOUNTER → 2023-05-13 | Outpatient (REF) | payer MEDICARE | LOC: M SFHCWAGY 17:23 | PROVIDERS: ATTEND Nurse Practitioner Family | DX: Z12.4 Encounter for screening for malignant neoplasm of cervix (principal) | CPT/HCPCS: 87624; G0123 ==

== ENCOUNTER → 2024-04-20 | Outpatient (CLI) | payer MEDICARE ==
[~2024-04-20] MED LIST changes: +E-Z-GAS II EFFERVESCENT PACKET (SODIUM BICARB./CITRIC ACID/SIMETHICONE) As Ordered ONE; +E-Z-HD 98% w/w 340GM SUSP BTL As Ordered ONE; +E-Z-PAQUE 96% w/w SUSP 176GM BTL As Ordered ONE
== END ==
LOC: M RAD 10:01
PROVIDERS: ATTEND Family Medicine
DX: R10.13 Epigastric pain (principal); Z85.3 Personal history of malignant neoplasm of breast